=== PATIENT | female | born 1955 | race Caucasian/White ===

== ENCOUNTER 2023-10-13 02:57 | Inpatient (IN) ==
--- NOTE | 2023-10-13 03:19 | Emergency Department Note ---
Impression & Plan Febrile illness, Acute alteration in mental status ED Provider Note CHIEF COMPLAINT: Altered mental status HISTORY OF PRESENTING ILLNESS: This 68 year old female presents to the ER via ambulance for evaluation of altered mental status. All history was obtained from EMS and her sisters since the patient is unable to give an adequate history. Per EMS the patient was normal at noon. The patient's sister called and spoke with her in the evening and noticed that she had some slight confusion. She then called her later in the evening and noticed that she was completely confused. The patient had a fever of 103 F at home. She was 102 F for EMS. The patient was tachycardic in the 130s per EMS. Her systolic blood pressures were in the 200s for EMS. Her pulse ox was in the 80s and EMS placed her on 4 L of nasal cannula. She does not wear O2 at home. The patient has had a rash for the past month and is currently taking prednisone for the rash. Additional history obtained from the patient's sisters revealed that she had a rash all over her body that resolved after the first course of steroids, but then returned. She was given a second course of steroids with resolution of the rash again. Her sisters think that she is almost done with the steroids. The patient was recently started on hydrochlorothiazide about 1 week ago as well. The patient was bit by a tick about 3 weeks ago behind her knee. The patient removed to the tick on her own. The patient sisters state that she [place] this morning and had no symptoms and no abnormalities. In the afternoon when she got home she talked to her sister and said that she started feeling cold and shaking and felt like she had a fever. When she talked her again in the evening is when she had the higher fever and was more altered. REVIEW OF SYSTEMS: See HPI for pertinent positives and pertinent negatives. ALLERGIES: NKDA MEDICATIONS: Hydrochlorothiazide 12.5 mg once a day, simvastatin 40 mg once a day. Currently on prednisone 20 mg taper with 2 tablets left in the bottle. She also has a prescription for hydroxyzine 25 mg to take as needed for the itching. PAST MEDICAL HISTORY: Hypertension, high cholesterol PHYSICAL EXAM: Vital Signs: Vitals are noted on the nurse's note and reviewed by myself. GENERAL: The patient is ill-appearing, febrile, tachycardic, tachypneic, and altered. She is somewhat diaphoretic. SKIN: No obvious rashes or abnormal skin lesions noted on exam. Possible faint erythema to the left popliteal fossa from her previous tick bite. No obvious evidence for bull's-eye rash. Capillary reflex less than 2 seconds. HEAD: Normocephalic, atraumatic. EARS: Bilateral external auditory canals clear without tragus tenderness. Bilateral tympanic membranes pearly barbour without erythema or effusion. No mastoid tenderness bilaterally. EYES: Pupils equal round and reactive to light and accommodation. Conjunctivae without injection, sclerae without icterus. Extraocular movements intact. NOSE: Patent, turbinates inflamed with no discharge. No sinus tenderness. MOUTH: Mucous membranes moist. Airway patent, uvula midline. Pharynx is not erythematous and not edematous without exudate. Pharynx without postnasal drip. No evidence for peritonsillar abscess. NECK: Supple without nuchal rigidity. No obvious lymphadenopathy. HEART: Regular rate and rhythm without murmurs gallops or rubs. LUNGS: Clear to auscultation bilaterally without obvious wheezes, rales or rhonchi, but exam was somewhat difficult due to her status. The patient was hypoxic and placed on 3 L of oxygen by nasal cannula. ABDOMEN: Positive bowel sounds x 4. Normal tympanic percussion. Soft, nontender, without masses or organomegaly. NEURO: Patient was alert and oriented only to her name and birthday. She answered most questions with yes or no, but the yes and no did not seem to be appropriate. She was unable to answer more extensive questions. DIFFERENTIAL DIAGNOSIS: Differential diagnosis includes Influenza, RSV, COVID, viral syndrome, otitis media, otitis externa, pharyngitis, strep throat, pneumonia, meningitis, urinary tract infection, cellulitis, abscess, sepsis, bacteremia, Lyme disease, babesiosis, anaplasmosis, other tickborne illness, as well as other pathologies. ED COURSE AND MEDICAL DECISION MAKING: HISTORY FROM INDEPENDENT HISTORIAN: All history obtained from EMS and the patient's sisters due to her altered mental status. MONITOR: Continuous personnel monitor: Order was placed for continuous personnel monitor. Patient was placed on the personnel monitor and continuous pulse ox. Patient was noted to be in sinus tachycardia at an initial rate of 130 bpm per my interpretation. EKG: EKG was interpreted by myself as sinus tachycardia at 138 bpm with premature supraventricular complexes and nonspecific T wave abnormality. MEDICATIONS GIVEN: A total of 2 L normal saline solution bolus. Tylenol 1000 mg IV. Cefepime 2 g IV. INTERPRETATION OF LABS: I interpreted the labs with full lab results as below in the lab section of this note. White blood cell count normal 8.67. Hemoglobin normal at 15.4. Platelet count normal at 198. Coags normal. BUN elevated at 24 and glucose 172, but CMP otherwise normal. Lactate normal, but procalcitonin elevated at 0.72. TSH normal. High-sensitivity troponin elevated at 16.3 with repeat elevated at 24.3. Cath urine sample without evidence for UTI. Urine drug screen negative. Respiratory bio fire negative. Lyme disease screen negative. Anaplasmosis and Babesia smear negative, but DNA PCR still pending. Other tickborne testing still pending as well. Blood cultures pending. INTERPRETATION OF IMAGING: Chest x-ray was interpreted by myself and Dr. Ivan and was difficult to interpret due to positioning and showed elevation of the hemidiaphragm and cardiomegaly, but no obvious pneumonia. Radiology report is still pending. CT scan of the head without contrast was reviewed by myself and read by radiology as below and was negative for acute intracranial etiology. CONSULTATIONS: On-call hospitalist MDM SUMMARY: I examined the patient. The patient presents to the emergency department via EMS for altered mental status and fever. The patient was febrile, tachycardic, tachypneic, and hypoxic on initial exam. Hypoxia resolved after O2 by nasal cannula. The patient's sister states that she was in a normal state of health this morning. However, this afternoon the patient's sister spoke with her on the phone and she started having symptoms like she was developing a fever. This evening the patient's sister talked to her and she had an altered mental status and a fever of 103 F. That is when the sister called 911. The patient has been dealing with a rash as an outpatient that resolved after 2 courses of oral steroids. She still has 2 pills of prednisone remaining. The patient was also bit by a tick about 3 weeks ago behind the left knee. The patient was not having any URI symptoms, chest pain, shortness of breath, abdominal pain, nausea, vomiting, urinary symptoms, or other symptoms of possible infection. The patient was alert, but only oriented to her name and date of on my initial exam. However, the patient's mental status improved as her fever resolved and vital signs improved. An IV lock was placed and sepsis workup initiated. The patient was given a total of 2 L normal saline solution bolus based on her ideal body weight. Blood cultures were obtained and she was given cefepime 2 g IV. The patient was given IV Tylenol with eventual improvement of her fever. CT scan of the head was negative for acute intracranial etiology. Chest x-ray negative for obvious pneumonia per my interpretation with radiology report still pending. EKG without evidence for STEMI, but high-sensitivity troponin x 2 were mildly elevated which may be secondary to demand ischemia. White blood cell count was normal. Hemoglobin and platelet count were normal. BUN and glucose were elevated, but CMP otherwise normal. Lactate normal, but procalcitonin elevated at 0.72. Cath urine sample was negative for UTI. Urine drug screen negative. Respiratory bio fire negative. Lyme disease screen negative. Anaplasmosis and Babesia smears were negative, but DNA PCR still pending. Other tickborne testing still pending as well. Blood cultures are pending. While there is no obvious source of the patient's fever and symptoms at this time, there is concern for possible tickborne etiology. Will await results of the pending tests. The patient was independently evaluated by Dr. Ivan, who agrees with my assessment and treatment plan. The patient will require admission for further evaluation and treatment of her symptoms. I spoke with the on-call hospitalist who agreed to admit the patient for further management. Please refer to their dictation for further details. The patient's care was transferred in stable condition. After the patient was admitted, the radiologist read the chest x-ray. Radiologist reading showed a bandlike right infrahilar opacity which favors atelectasis. However, less likely pneumonia could appear similar. This could be assessed with a nonemergent chest CT to exclude a central obstructing lesion. Moderate elevation of the right hemidiaphragm. Cardiomegaly without evidence for pulmonary edema. I sent the radiologist report to the admitting hospitalist via [place] text. DIAGNOSIS: Febrile illness Altered mental status Past Med/Surg History Medical History (Updated 10/13/23 @ 08:53 by Maria E Cameron PA-C) Hypertension Asthma cold induced--inhaler prn Hyperlipidemia Surgical History History of colonoscopy History of tooth extraction full upper denture Family History Other No family history of adverse response to anesthesia Social History Smoking Status: Never smoker Second Hand Exposure: No; Do You Dip or Chew Tobacco: No; Tobacco Cessation Education Requested by Patient: No Hx Alcohol Use: No Hx Substance Use: No Preferred Language: Martiniquais Communication Ability: Effective Systems Mgr Required: No Beliefs That Will Affect Care: None Current Living Situation: Family Current Living Situation Comment: "live with someone" Other Information That Helps Us Care for You: No Feels Safe at Home: Yes Safety Concerns: Feels Safe At This Time Assistive Devices: None Allergies Allergies Allergy/AdvReac Type Severity Reaction Status Date / Time No Known Allergies Allergy Verified 03/10/21 12:14 Home Meds Home Medications Medication Instructions Recorded Confirmed albuterol sulfate 90 mcg/actuation 2 puff inhalation Q6H PRN 03/04/21 03/10/21 aerosol inhaler Shortness Of Breath atorvastatin 40 mg tablet 40 mg PO HS 03/04/21 03/10/21 hydrochlorothiazide 12.5 mg tablet 12.5 mg PO DAILY 10/13/23 10/13/23 hydroxyzine HCl 25 mg tablet mg 10/13/23 prednisone 20 mg tablet 20 mg PO DAILY 10/13/23 10/13/23 Results & Data (ED) Vital Signs Vital Signs - 24 hr 10/13/23 03:11 10/13/23 03:16 10/13/23 03:24 Temperature 39.6 C H Temperature Source Oral Pulse Rate 135 H 135 H Pulse Rate [Apical] Pulse Rhythm [Apical] Respiratory Rate 41 H Respiratory Effort / Characteristics Respiratory Depth Respiratory Pattern Blood Pressure 161/98 H Blood Pressure [Left Arm] Blood Pressure Mean 119 Blood Pressure Mean [Left Arm] Blood Pressure Position [Left Arm] Pulse Oximetry 87 L 97 Oxygen Delivery Method Room Air Nasal Cannula Oxygen Flow Rate 3 Sepsis Recent Fever Within 48 Hours Yes Sepsis New/Unexplained Change in Mental Status Yes Sepsis Action Taken by Nursing Adv Provider Notified 10/13/23 04:10 10/13/23 04:33 10/13/23 05:00 Temperature 39.0 C H 39.3 C H Temperature Source Oral Oral Pulse Rate Pulse Rate [Apical] 118 H 116 H Pulse Rhythm [Apical] Regular Respiratory Rate 30 H 21 Respiratory Effort / Characteristics Non-Labored Spontaneous Respiratory Depth Normal Respiratory Pattern Regular Blood Pressure Blood Pressure [Left Arm] 141/66 H 113/58 L Blood Pressure Mean Blood Pressure Mean [Left Arm] 91 76 Blood Pressure Position [Left Arm] Semi-fowlers Pulse Oximetry 97 96 Oxygen Delivery Method Nasal Cannula Nasal Cannula Oxygen Flow Rate 3 4 Sepsis Recent Fever Within 48 Hours Sepsis New/Unexplained Change in Mental Status Sepsis Action Taken by Nursing Laboratory Data 10/13/23 03:15 10/13/23 03:15 Lab Results 10/13/23 10/13/23 10/13/23 Range/Units 03:15 03:15 03:34 WBC 8.67 (4.8-10.8) K/ul RBC 5.19 (4.20-5.40) M/uL Hgb 15.4 (12.0-16.0) g/dl Hct 45.2 (37.0-47.0) % MCV 87.1 (80.0-100.0) fL MCH 29.7 (25.0-34.0) pg MCHC 34.1 (32.0-36.0) g/dL RDW Std Deviation 39.8 (36.4-46.3) fL RDW Coeff of Zonia 12.5 (11.5-14.5) % Plt Count 198 (130-400) K/uL MPV 9.2 L (9.4-12.4) fL Immature Gran % (Auto) 0.6 % Neut % (Auto) 83.8 % Lymph % (Auto) 7.5 % [place] % (Auto) 7.4 % Eos % (Auto) 0.5 % Baso % (Auto) 0.2 % Neut # (Auto) 7.27 H (1.40-6.50) K/uL Lymph # (Auto) 0.65 L (1.20-3.40) K/uL [place] # (Auto) 0.64 H (0.11-0.59) K/uL Eos # (Auto) 0.04 (0.00-0.50) K/uL Baso # (Auto) 0.02 (0.00-0.20) K/uL Immature Gran # (Auto) 0.05 (0.01-0.20) K/uL PT 11.3 (9.0-12.0) Seconds INR 1.0 (0.9-1.1) APTT 21 (21-31) Seconds PTT Ratio 0.7 Sodium 136 (136-145) mmol/L Potassium 4.2 (3.5-5.1) mmol/L Chloride 100 (98-107) mmol/L Carbon Dioxide 28 (21-32) mmol/L Anion Gap 8 (3-11) BUN 24 H (6-23) mg/dl Creatinine 1.02 (0.6-1.2) mg/dl Est Cr Clr Drug Dosing 56.2 ml/min Est GFR ( Amer) 66.4 ml/min Est GFR (Non-Af Amer) 57.3 ml/min BUN/Creatinine Ratio 23.5 H (10-20) Glucose 172 H (70-99(Fasting)) mg/dl Lactate 1.6 (0.4-2.0) mmol/L Calcium 8.9 (8.6-10.3) mg/dl Magnesium 1.7 (1.7-2.4) mg/dl Total Bilirubin 0.8 (0.2-1.0) mg/dl AST 13 (13-39) U/L ALT 15 (7-52) U/L Alkaline Phosphatase 55 (34-104) U/L Troponin I High Sens 16.3 H Cancelled (0-14) pg/ml Total Protein 6.6 (6.0-8.3) gm/dl Albumin 4.0 (3.4-5.0) gm/dl Globulin 2.6 (2.5-4.0) gm/dl Albumin/Globulin Ratio 1.5 (0.9-2) Lipase 53 (11-82) U/L Procalcitonin 0.72 H (0-0.5) ng/ml TSH 0.601 (0.300-4.500) uIu/ml Urine Color Yellow Urine Appearance Clear (Clear) Urine pH 5.5 (4.5-7.5) Ur Specific [place] 1.023 (1.000-1.030) Urine Protein 1+ H (Negative) Urine Glucose (UA) Negative (Negative) Urine Ketones Negative (Negative) Urine Blood Negative (Negative) Urine Nitrite Negative (Negative) Urine Bilirubin Negative (Negative) Urine Urobilinogen Negative (Negative) Ur Leukocyte Esterase Negative (Negative) Urine WBC (Auto) 0-5 (0-5) /hpf Urine RBC (Auto) 0-2 (0-2) /hpf U Hyaline Cast (Auto) 0-2 (0-2) /lpf U Epithel Cells (Auto) 11-20 H (0-2) /hpf Urine Bacteria (Auto) None Seen (None Seen) Urine Mucus Present A (None Prsent) Urine Opiates Screen Neg (Neg) Ur Methadone, Qual Neg (Neg) Urine Barbiturates Neg (Neg) Ur Phencyclidine (PCP) Neg (Neg) U Amphetamin/Meth Scrn Neg (Neg) MDMA (Ecstasy) Screen Neg (Neg) U Benzodiazepines Scrn Neg (Neg) Ur Cocaine Metabolite Neg (Neg) U Marijuana (THC) Screen Neg (Neg) Adenovirus (PCR) Not Detected (NotDetected) Anaplasma Smear See Comment Babesia Smear See Comment B. pertussis DNA (PCR) Not Detected (NotDetected) B.parapertussis DNA PCR Not Detected (NotDetected) Lyme Disease Screen (Negative) C. pneumoniae DNA (PCR) Not Detected (NotDetected) Coronavirus OC43 (PCR) Not Detected (NotDetected) Coronavirus HKU1 (PCR) Not Detected (NotDetected) Coronavirus 229E (PCR) Not Detected (NotDetected) SARS-CoV-2 (PCR) Not Detected (NotDetected) Coronavirus NL63 (PCR) Not Detected (NotDetected) Human Metapneumovir PCR Not Detected (NotDetected) Influenza Type A (PCR) Not Detected (NotDetected) Influenza Type B (PCR) Not Detected (NotDetected) M. pneumoniae (PCR) Not Detected (NotDetected) Parainfluenza 1 (PCR) Not Detected (NotDetected) Parainfluenza 2 (PCR) Not Detected (NotDetected) Parainfluenza 3 (PCR) Not Detected (NotDetected) Parainfluenza 4 (PCR) Not Detected (NotDetected) RSV (PCR) Not Detected (NotDetected) Entero/Rhino (PCR) Not Detected (NotDetected) 10/13/23 Range/Units 04:59 WBC (4.8-10.8) K/ul RBC (4.20-5.40) M/uL Hgb (12.0-16.0) g/dl Hct (37.0-47.0) % MCV (80.0-100.0) fL MCH (25.0-34.0) pg MCHC (32.0-36.0) g/dL RDW Std Deviation (36.4-46.3) fL RDW Coeff of Zonia (11.5-14.5) % Plt Count (130-400) K/uL MPV (9.4-12.4) fL Immature Gran % (Auto) % Neut % (Auto) % Lymph % (Auto) % [place] % (Auto) % Eos % (Auto) % Baso % (Auto) % Neut # (Auto) (1.40-6.50) K/uL Lymph # (Auto) (1.20-3.40) K/uL [place] # (Auto) (0.11-0.59) K/uL Eos # (Auto) (0.00-0.50) K/uL Baso # (Auto) (0.00-0.20) K/uL Immature Gran # (Auto) (0.01-0.20) K/uL PT (9.0-12.0) Seconds INR (0.9-1.1) APTT (21-31) Seconds PTT Ratio Sodium (136-145) mmol/L Potassium (3.5-5.1) mmol/L Chloride (98-107) mmol/L Carbon Dioxide (21-32) mmol/L Anion Gap (3-11) BUN (6-23) mg/dl Creatinine (0.6-1.2) mg/dl Est Cr Clr Drug Dosing ml/min Est GFR ( Amer) ml/min Est GFR (Non-Af Amer) ml/min BUN/Creatinine Ratio (10-20) Glucose (70-99(Fasting)) mg/dl Lactate (0.4-2.0) mmol/L Calcium (8.6-10.3) mg/dl Magnesium (1.7-2.4) mg/dl Total Bilirubin (0.2-1.0) mg/dl AST (13-39) U/L ALT (7-52) U/L Alkaline Phosphatase (34-104) U/L Troponin I High Sens 24.3 H (0-14) pg/ml Total Protein (6.0-8.3) gm/dl Albumin (3.4-5.0) gm/dl Globulin (2.5-4.0) gm/dl Albumin/Globulin Ratio (0.9-2) Lipase (11-82) U/L Procalcitonin (0-0.5) ng/ml TSH (0.300-4.500) uIu/ml Urine Color Urine Appearance (Clear) Urine pH (4.5-7.5) Ur Specific [place] (1.000-1.030) Urine Protein (Negative) Urine Glucose (UA) (Negative) Urine Ketones (Negative) Urine Blood (Negative) Urine Nitrite (Negative) Urine Bilirubin (Negative) Urine Urobilinogen (Negative) Ur Leukocyte Esterase (Negative) Urine WBC (Auto) (0-5) /hpf Urine RBC (Auto) (0-2) /hpf U Hyaline Cast (Auto) (0-2) /lpf U Epithel Cells (Auto) (0-2) /hpf Urine Bacteria (Auto) (None Seen) Urine Mucus (None Prsent) Urine Opiates Screen (Neg) Ur Methadone, Qual (Neg) Urine Barbiturates (Neg) Ur Phencyclidine (PCP) (Neg) U Amphetamin/Meth Scrn (Neg) MDMA (Ecstasy) Screen (Neg) U Benzodiazepines Scrn (Neg) Ur Cocaine Metabolite (Neg) U Marijuana (THC) Screen (Neg) Adenovirus (PCR) (NotDetected) Anaplasma Smear Babesia Smear B. pertussis DNA (PCR) (NotDetected) B.parapertussis DNA PCR (NotDetected) Lyme Disease Screen Negative (Negative) C. pneumoniae DNA (PCR) (NotDetected) Coronavirus OC43 (PCR) (NotDetected) Coronavirus HKU1 (PCR) (NotDetected) Coronavirus 229E (PCR) (NotDetected) SARS-CoV-2 (PCR) (NotDetected) Coronavirus NL63 (PCR) (NotDetected) Human Metapneumovir PCR (NotDetected) Influenza Type A (PCR) (NotDetected) Influenza Type B (PCR) (NotDetected) M. pneumoniae (PCR) (NotDetected) Parainfluenza 1 (PCR) (NotDetected) Parainfluenza 2 (PCR) (NotDetected) Parainfluenza 3 (PCR) (NotDetected) Parainfluenza 4 (PCR) (NotDetected) RSV (PCR) (NotDetected) Entero/Rhino (PCR) (NotDetected) Administered Medications Discontinued Medications Sodium Chloride (Nss) 1,000 mls @ 999 mls/hr IV .Q1H1M STA Stop: 10/13/23 04:23 Last Infusion: 10/13/23 05:01 Dose: Infused Documented By: Admin: 10/13/23 03:40 Dose: 999 mls/hr Documented By: RICKY Sodium Chloride (Nss) 1,000 mls @ 999 mls/hr IV .Q1H1M ONE Stop: 10/13/23 04:23 Last Infusion: 10/13/23 05:01 Dose: Infused Documented By: Admin: 10/13/23 03:40 Dose: 999 mls/hr Documented By: RICKY Cefepime HCl (Maxipime) 2,000 mg in 20 mls @ 5 mls/min IV NOW STA; Protocol Stop: 10/13/23 03:26 Last Admin: 10/13/23 03:39 Dose: 5 mls/min Documented By: RICKY Acetaminophen (Ofirmev) 1,000 mg in 100 mls @ 400 mls/hr IV NOW STA Stop: 10/13/23 03:41 Last Infusion: 10/13/23 03:54 Dose: Infused Documented By: Admin: 10/13/23 03:39 Dose: 400 mls/hr Documented By: RICKY Ondansetron HCl (Ondansetron Inj 2 Mg/Ml 2 Ml Vial) Confirm Administered Dose 4 mg .ROUTE .STK-MED ONE Stop: 10/13/23 03:07 Last Admin: 10/13/23 06:01 Dose: Not Given Documented By: RICKY Imaging Data Radiologist's Impression: Chest X-Ray 10/13/23 03:24 XR chest 1V portable CLINICAL HISTORY: Fever. COMPARISON STUDY: No previous studies for comparison. FINDINGS: There is moderate elevation of the right hemidiaphragm. Linear right basilar opacity favors atelectasis. Right infrahilar band-like density is present. There is mild cardiomegaly without evidence for pulmonary edema. There is no pneumothorax or pleural effusion. IMPRESSION: 1. Band-like right infrahilar opacity. This favors atelectasis. Although less likely, pneumonia could appear similar. This could be assessed with a nonemergent chest CT to exclude a central obstructing lesion. This finding will be called/faxed to ordering provider at time of dictation. 2. Moderate elevation of the right hemidiaphragm. 3. Cardiomegaly without evidence for pulmonary edema. ACT 112: Negative or not required by law. Electronically signed by: Armando Bagley M.D. 10/13/2023 6:[address] 10/13/23 03:26 Exam(s): CT HEAD Without Contrast EXAM: CT Head Without Intravenous Contrast CLINICAL HISTORY: Reason for exam: AMS. TECHNIQUE: Axial computed tomography images of the head/brain without intravenous contrast. Automated exposure control was utilized for the study. A dose lowering technique was utilized adhering to the principles of ALARA. COMPARISON: No relevant prior studies available. FINDINGS: Brain: Unremarkable. No hemorrhage. No significant white matter disease. No edema. Ventricles: Unremarkable. No ventriculomegaly. Bones/joints: Incomplete fusion posterior ring of C1. Hyperostosis frontalis interna. Small benign bony exostosis over the left frontal bone. No acute fracture. Soft tissues: Unremarkable. Sinuses: Unremarkable as visualized. No acute sinusitis. Mastoid air cells: Unremarkable as visualized. No mastoid effusion. IMPRESSION: No evidence of acute intracranial pathology. Electronically signed by: Evon Sanchez MD 10/13/23 04:51 AM Discharge Plan Visit Data Chief Complaint: Altered Mental Status Stated Complaint: ALTERED MENTAL STATUS, FEVER ED Provider: Olimpia Ivan ED Midlevel Provider: Maria E Cameron Discharge Problem: Febrile illness, Acute alteration in mental status Patient Disposition: Admitted As Inpatient Condition: Good Discharge Instructions Interventions: ED Discharge Assessment Last Done: 10/13/23 07:40
[2023-10-13] MEDS: ACETAMINOPHEN 1,000 MG/100 ML VIAL IV STA (03:39)
[2023-10-13] MEDS: CEFEPIME 2,000 MG/20 ML VIAL IV STA (03:39)
[2023-10-13] MEDS: SODIUM CHLORIDE 0.9% 1,000 ML IV STA (03:40)
[2023-10-13] MEDS: SODIUM CHLORIDE 0.9% 1,000 ML IV ONE (03:40)
[2023-10-13 03:46] LABS: Basophils # (auto) 0.02 K/uL (0.00-0.20); Basophils % (auto) 0.2 %; Eosinophils # (auto) 0.04 K/uL (0.00-0.50); Eosinophils % (auto) 0.5 %; Hematocrit (blood only) 45.2 % (37.0-47.0); Hemoglobin 15.4 g/dl (12.0-16.0); Immature Granulocytes # (auto) 0.05 K/uL (0.01-0.20); Immature Granulocytes % (auto) 0.6 %; Lymphocytes # (auto) 0.65 K/uL (1.20-3.40); Lymphocytes % (auto) 7.5 %; Mean Corpuscular Hemoglobin 29.7 pg (25.0-34.0); Mean Corpuscular Hgb Conc 34.1 g/dL (32.0-36.0); Mean Corpuscular Volume 87.1 fL (80.0-100.0); Mean Platelet Volume 9.2 fL (9.4-12.4); Monocytes # (auto) 0.64 K/uL (0.11-0.59); Monocytes % (auto) 7.4 %; Neutrophils # (auto) 7.27 K/uL (1.40-6.50); Neutrophils % (auto) 83.8 %; Platelet Count 198 K/uL (130-400); RDW Coefficient of Variation 12.5 % (11.5-14.5); RDW Standard Deviation 39.8 fL (36.4-46.3); Red Blood Count 5.19 M/uL (4.20-5.40); White Blood Count 8.67 K/ul (4.8-10.8)
[2023-10-13 04:02] LABS: Albumin Globulin Ratio 1.5 (0.9-2); BUN Creatinine Ratio 23.5 (10-20); Bilirubin,Total 0.8 mg/dl (0.2-1.0); Calcium 8.9 mg/dl (8.6-10.3); Creatinine Clr Calc Pharmacy 56.2 ml/min; Est GFR (African American) 66.4 ml/min; Est GFR (Non-African American) 57.3 ml/min; Globulin 2.6 gm/dl (2.5-4.0); Magnesium 1.7 mg/dl (1.7-2.4); Potassium 4.2 mmol/L (3.5-5.1); Total Protein 6.6 gm/dl (6.0-8.3)
[2023-10-13 04:07] LABS: Troponin I High Sensitivity 16.3 pg/ml (0-14)
[2023-10-13 04:12] LABS: Appearance Urine Clear (Clear); Bacteria Urine Automated None Seen (None Seen); Bilirubin Urine Negative (Negative); Blood Urine Negative (Negative); Color Urine Yellow; Glucose Urine UA Negative (Negative); Ketones Urine Negative (Negative); Leukocyte Esterase Urine Negative (Negative); Nitrite Urine Negative (Negative); Protein Urine 1+ (Negative); RBC Urine Automated 0-2 /hpf (0-2); Specific Gravity Urine 1.023 (1.000-1.030); Urobilinogen Urine Negative (Negative); WBC Urine Automated 0-5 /hpf (0-5); pH Urine 5.5 (4.5-7.5)
[2023-10-13 04:17] LABS: Thyroid Stimulating Hormone 0.601 uIu/ml (0.300-4.500)
[2023-10-13 04:23] LABS: Cast Urine Automated 0-2 /lpf (0-2); Mucus Urine Present (None Prsent)
[2023-10-13 04:34] LABS: Partial Thromboplastin Ratio 0.7; Partial Thromboplastin Time 21 Seconds (21-31); Prothrombin Time 11.3 Seconds (9.0-12.0)
[2023-10-13 04:37] LABS: Adenovirus PCR Not Detected (NotDetected); Bordetella parapertussis PCR Not Detected (NotDetected); Bordetella pertussis PCR Not Detected (NotDetected); Chlamydia pneumoniae PCR Not Detected (NotDetected); Coronavirus 229E PCR Not Detected (NotDetected); Coronavirus CoV-2 (COVID19)PCR Not Detected (NotDetected); Coronavirus HKU1 PCR Not Detected (NotDetected); Coronavirus NL63 PCR Not Detected (NotDetected); Coronavirus OC43PCR Not Detected (NotDetected); Human Metapneumovirus PCR Not Detected (NotDetected); Influenza A PCR Not Detected (NotDetected); Influenza B PCR Not Detected (NotDetected); Mycoplasma pneumoniae PCR Not Detected (NotDetected); Parainfluenza Virus 1 PCR Not Detected (NotDetected); Parainfluenza Virus 2 PCR Not Detected (NotDetected); Parainfluenza Virus 3 PCR Not Detected (NotDetected); Parainfluenza Virus 4 PCR Not Detected (NotDetected); Respiratory Syncytial VirusPCR Not Detected (NotDetected); Rhinovirus/Enterovirus PCR Not Detected (NotDetected)
--- NOTE | 2023-10-13 04:52 | CT Scan Report ---
Exam(s): CT HEAD Without Contrast EXAM: CT Head Without Intravenous Contrast CLINICAL HISTORY: Reason for exam: AMS. TECHNIQUE: Axial computed tomography images of the head/brain without intravenous contrast. Automated exposure control was utilized for the study. A dose lowering technique was utilized adhering to the principles of ALARA. COMPARISON: No relevant prior studies available. FINDINGS: Brain: Unremarkable. No hemorrhage. No significant white matter disease. No edema. Ventricles: Unremarkable. No ventriculomegaly. Bones/joints: Incomplete fusion posterior ring of C1. Hyperostosis frontalis interna. Small benign bony exostosis over the left frontal bone. No acute fracture. Soft tissues: Unremarkable. Sinuses: Unremarkable as visualized. No acute sinusitis. Mastoid air cells: Unremarkable as visualized. No mastoid effusion. IMPRESSION: No evidence of acute intracranial pathology. Electronically signed by: Evon Sanchez MD 10/13/23 04:51 AM
--- NOTE | 2023-10-13 05:13 | History & Physical Report ---
Date of Service October 13, 2023 Assessment & Plan (1) Febrile illness: Plan: Patient febrile 39.3, tachycardic at 116 bpm. She has normal white blood cell count but elevated neutrophils and decreased lymphocytes indicative of systemic stress. Mild elevation of procalcitonin = 0.72. Etiology unclear. Suspect tickborne illness. Patient reports a tick bite approximately 3 weeks ago. UA does not suggest infection, chest x-ray with no obvious pneumonia, respiratory bio fire panel is negative. Typhus, Rickettsia, Q fever and tickborne panel sent from the ER and is pending Admit to medical telemetry Follow cultures Empiric doxycycline 100 mg IV twice daily Continue IV hydration with LR at 125 mL/h x 2 L Tylenol as needed for pain or fever Ibuprofen as needed for pain or fever Zofran as needed for nausea (2) Encephalopathy acute: Plan: Patient with acute encephalopathy likely secondary to infectious process Workup as above Frequent orientation (3) Hypertension: Plan: Patient was recently started on hydrochlorothiazide. Her rash was present before this medication started Will hold for now Continue to monitor blood pressure (4) Hyperlipidemia: Plan: Chronic. Stable. Continue atorvastatin History of Present Illness Chief Complaint: fever, confusion Primary Care Provider: Jose Sánchez Gracie Salazar is a 68yo female with history of HTN, HLP and asthma presenting from home with acute febrile illness. Patient has been in her usual state of health with exception of a diffuse pruritic rash that occurred several weeks ago. She completed a course of steroids with improvement and is currently on her second course of steroids. This morning she went to get her hair done. She developed some chills and fatigue. She then returned home and called her sister. Her sister reports that she sounded tired and a little bit off, some difficulty with speaking. Her confusion progressed throughout the day. Patient was not answering questions this evening which prompted family to call EMS. Per report, patient febrile, tachycardic, tachypneic. Decreased saturations. Patient presently offers no complaints. She has had an intermittent headache and chills. Denies neck pain or stiffness, chest pain, cough, shortness of breath, abdominal pain, nausea, vomiting, diarrhea, constipation, urinary complaints. She was bitten by a tick 3 weeks ago in the back of her knee. She reports that the area became very red afterwards but does not describe a true bull's-eye peri h. ER course: Tylenol, cefepime, normal saline x 2 L Allergies Allergy/AdvReac Type Severity Reaction Status Date / Time No Known Allergies Allergy Verified 03/10/21 12:14 Home Medications Medication Instructions Recorded Confirmed Type albuterol sulfate 90 mcg/actuation 2 puff inhalation Q6H PRN 03/04/21 03/10/21 History aerosol inhaler Shortness Of Breath atorvastatin 40 mg tablet 40 mg PO HS 03/04/21 03/10/21 History hydrochlorothiazide 12.5 mg tablet 12.5 mg PO DAILY 10/13/23 10/13/23 History hydroxyzine HCl 25 mg tablet mg 10/13/23 History prednisone 20 mg tablet 20 mg PO DAILY 10/13/23 10/13/23 History Past Med/Surg History Medical History (Updated 10/13/23 @ 05:36 by Manasa Urena DO) Hypertension Asthma cold induced--inhaler prn Hyperlipidemia Surgical History History of colonoscopy History of tooth extraction full upper denture Family History Other No family history of adverse response to anesthesia Social History Smoking Status: Never smoker Second Hand Exposure: No; Do You Dip or Chew Tobacco: No; Hx Alcohol Use: No Hx Substance Use: No Preferred Language: Macedonian Communication Ability: Effective 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 Beliefs That Will Affect Care: None Current Living Situation: Other Current Living Situation Comment: "live with someone" Feels Safe at Home: Yes Assistive Devices: Denture - Upper and Glasses Review of Systems Review of Systems: All systems reviewed & are unremarkable except as noted in HPI & below Physical Exam Physical Exam: General: patient resting comfortably, NAD, non-toxic in appearance, AA&O x 4 Skin: warm, dry, intact, no rashes or lesions HEENT: NC/AT, PERRL, EOMI, anicteric sclera, conjunctiva without injection, external ear normal to inspection and nontender, nares patent, dry mucus membranes, dentition intact, no oropharyngeal lesions, neck supple, trachea midline, no LAD, no thyromegaly, no JVD Heart: +S1/S2, regular, no m/r/g Lungs: equal air entry bilaterally, no rales/rhonchi/wheezes Abd: +BS, soft, NT/ND, no masses/organomegaly/ascites Ext: warm, 2+ pulses in UE/LE bilaterally, no clubbing/cyanosis or edema Neuro: nonfocal, patient AA&O x 4, speech intact, no facial droop, moving all extremities on command with equal strength 5/5 Results & Data Results & Data Vital Signs (Past 12 Hours) Vital Signs Temp Pulse Pulse Resp BP BP Pulse Ox 10/13/23 04:33 39.3 C H 10/13/23 04:10 39.0 C H 118 H 30 H 141/66 H 97 10/13/23 03:24 97 10/13/23 03:16 39.6 C H 135 H 41 H 161/98 H 87 L 10/13/23 03:11 135 H O2 Del Method O2 Flow Rate 10/13/23 04:33 10/13/23 04:10 Nasal Cannula 3 10/13/23 03:24 Nasal Cannula 3 10/13/23 03:16 Room Air 10/13/23 03:11 Laboratory Results Laboratory Results WBC 8.67 K/ul (4.8-10.8) 10/13/23 03:15 RBC 5.19 M/uL (4.20-5.40) 10/13/23 03:15 Hgb 15.4 g/dl (12.0-16.0) 10/13/23 03:15 Hct 45.2 % (37.0-47.0) 10/13/23 03:15 MCV 87.1 fL (80.0-100.0) 10/13/23 03:15 MCH 29.7 pg (25.0-34.0) 10/13/23 03:15 MCHC 34.1 g/dL (32.0-36.0) 10/13/23 03:15 RDW Std Deviation 39.8 fL (36.4-46.3) 10/13/23 03:15 RDW Coeff of Zonia 12.5 % (11.5-14.5) 10/13/23 03:15 Plt Count 198 K/uL (130-400) 10/13/23 03:15 MPV 9.2 fL (9.4-12.4) L 10/13/23 03:15 Immature Gran % (Auto) 0.6 % 10/13/23 03:15 Neut % (Auto) 83.8 % 10/13/23 03:15 Lymph % (Auto) 7.5 % 10/13/23 03:15 [place] % (Auto) 7.4 % 10/13/23 03:15 Eos % (Auto) 0.5 % 10/13/23 03:15 Baso % (Auto) 0.2 % 10/13/23 03:15 Neut # (Auto) 7.27 K/uL (1.40-6.50) H 10/13/23 03:15 Lymph # (Auto) 0.65 K/uL (1.20-3.40) L 10/13/23 03:15 [place] # (Auto) 0.64 K/uL (0.11-0.59) H 10/13/23 03:15 Eos # (Auto) 0.04 K/uL (0.00-0.50) 10/13/23 03:15 Baso # (Auto) 0.02 K/uL (0.00-0.20) 10/13/23 03:15 Immature Gran # (Auto) 0.05 K/uL (0.01-0.20) 10/13/23 03:15 PT 11.3 Seconds (9.0-12.0) 10/13/23 03:15 INR 1.0 (0.9-1.1) 10/13/23 03:15 APTT 21 Seconds (21-31) 10/13/23 03:15 PTT Ratio 0.7 10/13/23 03:15 Sodium 136 mmol/L (136-145) 10/13/23 03:15 Potassium 4.2 mmol/L (3.5-5.1) 10/13/23 03:15 Chloride 100 mmol/L (98-107) 10/13/23 03:15 Carbon Dioxide 28 mmol/L (21-32) 10/13/23 03:15 Anion Gap 8 (3-11) 10/13/23 03:15 BUN 24 mg/dl (6-23) H 10/13/23 03:15 Creatinine 1.02 mg/dl (0.6-1.2) 10/13/23 03:15 Est Cr Clr Drug Dosing 56.2 ml/min 10/13/23 03:15 Est GFR ( Amer) 66.4 ml/min 10/13/23 03:15 Est GFR (Non-Af Amer) 57.3 ml/min 10/13/23 03:15 BUN/Creatinine Ratio 23.5 (10-20) H 10/13/23 03:15 Glucose 172 mg/dl (70-99(Fasting)) H 10/13/23 03:15 Lactate 1.6 mmol/L (0.4-2.0) 10/13/23 03:15 Calcium 8.9 mg/dl (8.6-10.3) 10/13/23 03:15 Magnesium 1.7 mg/dl (1.7-2.4) 10/13/23 03:15 Total Bilirubin 0.8 mg/dl (0.2-1.0) 10/13/23 03:15 AST 13 U/L (13-39) 10/13/23 03:15 ALT 15 U/L (7-52) 10/13/23 03:15 Alkaline Phosphatase 55 U/L (34-104) 10/13/23 03:15 Troponin I High Sens 16.3 pg/ml (0-14) H 10/13/23 03:15 Troponin I High Sens Cancelled 10/13/23 03:15 Total Protein 6.6 gm/dl (6.0-8.3) 10/13/23 03:15 Albumin 4.0 gm/dl (3.4-5.0) 10/13/23 03:15 Globulin 2.6 gm/dl (2.5-4.0) 10/13/23 03:15 Albumin/Globulin Ratio 1.5 (0.9-2) 10/13/23 03:15 Lipase 53 U/L (11-82) 10/13/23 03:15 Procalcitonin 0.72 ng/ml (0-0.5) H 10/13/23 03:15 TSH 0.601 uIu/ml (0.300-4.500) 10/13/23 03:15 Urine Color Yellow 10/13/23 03:34 Urine Appearance Clear (Clear) 10/13/23 03:34 Urine pH 5.5 (4.5-7.5) 10/13/23 03:34 Ur Specific [place] 1.023 (1.000-1.030) 10/13/23 03:34 Urine Protein 1+ (Negative) H 10/13/23 03:34 Urine Glucose (UA) Negative (Negative) 10/13/23 03:34 Urine Ketones Negative (Negative) 10/13/23 03:34 Urine Blood Negative (Negative) 10/13/23 03:34 Urine Nitrite Negative (Negative) 10/13/23 03:34 Urine Bilirubin Negative (Negative) 10/13/23 03:34 Urine Urobilinogen Negative (Negative) 10/13/23 03:34 Ur Leukocyte Esterase Negative (Negative) 10/13/23 03:34 Urine WBC (Auto) 0-5 /hpf (0-5) 10/13/23 03:34 Urine RBC (Auto) 0-2 /hpf (0-2) 10/13/23 03:34 U Hyaline Cast (Auto) 0-2 /lpf (0-2) 10/13/23 03:34 U Epithel Cells (Auto) 11-20 /hpf (0-2) H 10/13/23 03:34 Urine Bacteria (Auto) None Seen (None Seen) 10/13/23 03:34 Urine Mucus Present (None Prsent) A 10/13/23 03:34 Adenovirus (PCR) Not Detected (NotDetected) 10/13/23 03:15 B. pertussis DNA (PCR) Not Detected (NotDetected) 10/13/23 03:15 B.parapertussis DNA PCR Not Detected (NotDetected) 10/13/23 03:15 C. pneumoniae DNA (PCR) Not Detected (NotDetected) 10/13/23 03:15 Coronavirus OC43 (PCR) Not Detected (NotDetected) 10/13/23 03:15 Coronavirus HKU1 (PCR) Not Detected (NotDetected) 10/13/23 03:15 Coronavirus 229E (PCR) Not Detected (NotDetected) 10/13/23 03:15 SARS-CoV-2 (PCR) Not Detected (NotDetected) 10/13/23 03:15 Coronavirus NL63 (PCR) Not Detected (NotDetected) 10/13/23 03:15 Human Metapneumovir PCR Not Detected (NotDetected) 10/13/23 03:15 Influenza Type A (PCR) Not Detected (NotDetected) 10/13/23 03:15 Influenza Type B (PCR) Not Detected (NotDetected) 10/13/23 03:15 M. pneumoniae (PCR) Not Detected (NotDetected) 10/13/23 03:15 Parainfluenza 1 (PCR) Not Detected (NotDetected) 10/13/23 03:15 Parainfluenza 2 (PCR) Not Detected (NotDetected) 10/13/23 03:15 Parainfluenza 3 (PCR) Not Detected (NotDetected) 10/13/23 03:15 Parainfluenza 4 (PCR) Not Detected (NotDetected) 10/13/23 03:15 RSV (PCR) Not Detected (NotDetected) 10/13/23 03:15 Entero/Rhino (PCR) Not Detected (NotDetected) 10/13/23 03:[address] 10/13/23 03:26 Exam(s): CT HEAD Without Contrast EXAM: CT Head Without Intravenous Contrast CLINICAL HISTORY: Reason for exam: AMS. TECHNIQUE: Axial computed tomography images of the head/brain without intravenous contrast. Automated exposure control was utilized for the study. A dose lowering technique was utilized adhering to the principles of ALARA. COMPARISON: No relevant prior studies available. FINDINGS: Brain: Unremarkable. No hemorrhage. No significant white matter disease. No edema. Ventricles: Unremarkable. No ventriculomegaly. Bones/joints: Incomplete fusion posterior ring of C1. Hyperostosis frontalis interna. Small benign bony exostosis over the left frontal bone. No acute fracture. Soft tissues: Unremarkable. Sinuses: Unremarkable as visualized. No acute sinusitis. Mastoid air cells: Unremarkable as visualized. No mastoid effusion. IMPRESSION: No evidence of acute intracranial pathology. Electronically signed by: Evon Sanchez MD 10/13/23 04:51 AM Code Status & VTE Plan VTE Prophylaxis Plan VTE Prophylaxis will be ordered: Yes PG Care Time/CCT Total # of Minutes Spent Total Time Spent with Patient: Total time spent is greater than 50% in coordination of care (as documented) at patient's floor/unit and/or counseling patient: Coding Level of Care Code 86528 INT INP/OBS CARE MIN Diagnoses Febrile illness R50.9 Encephalopathy acute G93.40 Hypertension I10 Hyperlipidemia E78.5
[2023-10-13 05:38] LABS: Amphetamines+Metham, Urine Neg (Neg); Barbiturates, Urine Neg (Neg); Benzodiazepine, Urine Neg (Neg); Cocaine, Urine Neg (Neg); MDMA (Ecstacy), Urine Neg (Neg); Marijuana, Urine Neg (Neg); Methadone, Urine Neg (Neg); Opiate, Urine Neg (Neg); Phencyclidine, Urine Neg (Neg)
[2023-10-13] MEDS: ONDANSETRON INJ 2 MG/ML 2 ML VIAL ONE (06:01)
--- NOTE | 2023-10-13 06:34 | XRay Report ---
XR chest 1V portable CLINICAL HISTORY: Fever. COMPARISON STUDY: No previous studies for comparison. FINDINGS: There is moderate elevation of the right hemidiaphragm. Linear right basilar opacity favors atelectasis. Right infrahilar band-like density is present. There is mild cardiomegaly without evide nce for pulmonary edema. There is no pneumothorax or pleural effusion. IMPRESSION: 1. Band-like right infrahilar opacity. This favors atelectasis. Although less likely, pneumonia could appear similar. This could be assessed with a nonemergent chest CT to exclude a central obstructing lesion. This finding will be called/faxed to ordering provider at time of dictation. 2. Moderate elevation of the right hemidiaphragm. 3. Cardiomegaly without evidence for pulmonary edema. ACT 112: Negative or not required by law. Electronically signed by: Armando Bagley M.D. 10/13/2023 6:32 AM
--- NOTE | 2023-10-13 07:12 | Emergency Department Note ---
ED Visit Note I was consulted by the Advanced Practice Provider. I personally made/approved the management plan and take responsibility for the patient management. I performed a substantive portion of the visit. This includes the aspects of: Personally seeing the patient MDM I independently interpreted the following studies: Portable chest x-ray .
[2023-10-13] MEDS ORDERED: ONDANSETRON INJ 2 MG/ML 2 ML VIAL IV PRN (07:40)
[2023-10-13] MEDS ORDERED: ALBUTEROL HFA 8 GM INHALER INH PRN (07:40)
[2023-10-13] MEDS: LACTATED RINGER'S 1,000 ML IV SCH (08:51)
[2023-10-13] MEDS: DOXYCYCLINE HYCLATE 100 MG in DEXTROSE 5% MINI-B 100 ML IV SCH (08:57)
[2023-10-13] MEDS: ACETAMINOPHEN 325 MG TAB PO PRN (13:23)
--- NOTE | 2023-10-13 15:00 | XRay Report ---
XR chest 2V PA/lateral CLINICAL HISTORY: fever, hypoxia, ?pneumonia COMPARISON STUDY: Chest radiograph performed earlier today. FINDINGS: Moderate elevation of the right hemidiaphragm is again noted. No pneumothorax or pleural ef fusion is present. Linear right basilar densities favor atelectasis. The previously described right i nfrahilar opacity is partially obscured on this examination. There is no evidence for pulmonary edema . There is mild cardiomegaly. IMPRESSION: 1. Moderate elevation of the right hemidiaphragm. Previously described right infrahilar opacity obscu red on this exam. This could reflect atelectasis or pneumonia. 2. Cardiomegaly. No evidence for pulmonary edema. ACT 112: Negative or not required by law. Electronically signed by: Armando Bagley M.D. 10/13/2023 2:58 PM
--- NOTE | 2023-10-13 15:26 | Hospitalist Progress Note ---
Date of Service October 13, 2023 Assessment & Plan (1) Febrile illness: Plan: extensive w/u to date negative. resp biofire panel neg. lyme screen eng. anaplasmosis/babesia smears neg. blood cx's - although early - are neg. u/a not suggestive of UTI. rash, pharyngitis, fevers/flu-like symptoms - suggestive of viral process. strep can cause rash ("scarlet fever") but the rash preceded the fevers by days to weeks. thus, strep unlikely. [id number] sent throat culture. repeat cxr today with ? right basilar infiltrates --> early pneumonia? will add rocephin 2gm daily to the doxy - latter primarily being used to cover for tick-borne illness or rickettsial illness. in the end I am most suspicious for viral process, with tick-borne illness still in differential. cont fluids, supportive care, rocephin/doxy. repeat labs am. (2) Encephalopathy acute: Plan: metabolic - 2nd to causative agent of #1 improved (3) Hypertension: Plan: hold HCTZ (4) Hyperlipidemia: Plan: LFTs and CPK wnl Continue atorvastatin Admission and Anticipated Discharge Date Admission Date: October 13, 2023 Subjective remains febrile main complaints - chills/cold, headache, very weak, no appetite denies recent travel denies obvious sick contacts had rash earlier this month - thought to be contact dermatitis - very pruritic, treated w/ multiple courses of po prednisone with some relief and some improvement in the rash has sore throat as well denies myalgias or arthralgias Physical Exam Physical Exam: gen - morbidly obese, looks sick but nontoxic, NAD skin - sweaty from her fever; faint macular rash on arms, thighs, neck, back; soles of feet spared; palms - slight rash neck - no meningismus, supple; multiple lymph nodes >1cm mouth - MMM; tonsils 3+, erythematous heart - tachy, s1 s2, no murmur lungs - CTA B/l abd - soft NT ND BS+ ext - no edema, pulses 2+ b/l musculo - no joint effusions small or large joints psych - a/o x 3 Results & Data Results & Data Vital Signs (Past 12 Hours) Vital Signs Temp Pulse Pulse Resp BP BP Pulse Ox 10/13/23 13:20 39.5 C H 10/13/23 13:00 119 H 36 H 96 10/13/23 13:00 134/71 10/13/23 12:30 122 H 32 H 99 10/13/23 12:00 114 H 34 H 100 10/13/23 12:00 156/87 H 10/13/23 11:30 110 H 36 H 96 10/13/23 11:00 92 H 34 H 100 10/13/23 11:00 136/60 10/13/23 08:58 37.5 C 84 23 116/55 L 100 10/13/23 08:04 99 H 10/13/23 06:39 84 18 120/60 97 10/13/23 06:00 85 18 120/60 97 10/13/23 06:00 38.0 C H 104 H 23 138/62 97 10/13/23 05:00 116 H 21 113/58 L 96 10/13/23 04:33 39.3 C H 10/13/23 04:10 39.0 C H 118 H 30 H 141/66 H 97 O2 Del Method O2 Flow Rate 10/13/23 13:20 10/13/23 13:00 Nasal Cannula 4 10/13/23 13:00 10/13/23 12:30 10/13/23 12:00 Nasal Cannula 4 10/13/23 12:00 10/13/23 11:30 Nasal Cannula 4 10/13/23 11:00 Nasal Cannula 4 10/13/23 11:00 10/13/23 08:58 Nasal Cannula 4 10/13/23 08:04 10/13/23 06:39 Room Air 10/13/23 06:00 Room Air 10/13/23 06:00 Nasal Cannula 4 10/13/23 05:00 Nasal Cannula 4 10/13/23 04:33 10/13/23 04:10 Nasal Cannula 3 Laboratory Results Laboratory Results - last 48 hr 10/13/23 10/13/23 10/13/23 03:15 03:15 03:34 WBC 8.67 RBC 5.19 Hgb 15.4 Hct 45.2 MCV 87.1 MCH 29.7 MCHC 34.1 RDW Std Deviation 39.8 RDW Coeff of [place] 12.5 Plt Count 198 MPV 9.2 L Immature Gran % (Auto) 0.6 Neut % (Auto) 83.8 Lymph % (Auto) 7.5 [place] % (Auto) 7.4 Eos % (Auto) 0.5 Baso % (Auto) 0.2 Neut # (Auto) 7.27 H Lymph # (Auto) 0.65 L [place] # (Auto) 0.64 H Eos # (Auto) 0.04 Baso # (Auto) 0.02 Immature Gran # (Auto) 0.05 PT 11.3 INR 1.0 APTT 21 PTT Ratio 0.7 Sodium 136 Potassium 4.2 Chloride 100 Carbon Dioxide 28 Anion Gap 8 BUN 24 H Creatinine 1.02 Est Cr Clr Drug Dosing 56.2 Est GFR ( Amer) 66.4 Est GFR (Non-Af Amer) 57.3 BUN/Creatinine Ratio 23.5 H Glucose 172 H Estimat Average Glucose Hemoglobin A1c Lactate 1.6 Calcium 8.9 Magnesium 1.7 Total Bilirubin 0.8 Direct Bilirubin AST 13 ALT 15 Alkaline Phosphatase 55 Total Creatine Kinase Troponin I High Sens 16.3 H Cancelled C-Reactive Protein Total Protein 6.6 Albumin 4.0 Globulin 2.6 Albumin/Globulin Ratio 1.5 Lipase 53 Procalcitonin 0.72 H TSH 0.601 Urine Color Yellow Urine Appearance Clear Urine pH 5.5 Ur Specific [place] 1.023 Urine Protein 1+ H Urine Glucose (UA) Negative Urine Ketones Negative Urine Blood Negative Urine Nitrite Negative Urine Bilirubin Negative Urine Urobilinogen Negative Ur Leukocyte Esterase Negative Urine WBC (Auto) 0-5 Urine RBC (Auto) 0-2 U Hyaline Cast (Auto) 0-2 U Epithel Cells (Auto) 11-20 H Urine Bacteria (Auto) None Seen Urine Mucus Present A Urine Opiates Screen Neg Ur Methadone, Qual Neg Urine Barbiturates Neg Ur Phencyclidine (PCP) Neg U Amphetamin/Meth Scrn Neg MDMA (Ecstasy) Screen Neg U Benzodiazepines Scrn Neg Ur Cocaine Metabolite Neg U Marijuana (THC) Screen Neg Adenovirus (PCR) Not Detected Anaplasma Smear See Comment Babesia Smear See Comment B. pertussis DNA (PCR) Not Detected B.parapertussis DNA PCR Not Detected Lyme Disease Screen C. pneumoniae DNA (PCR) Not Detected Coronavirus OC43 (PCR) Not Detected Coronavirus HKU1 (PCR) Not Detected Coronavirus 229E (PCR) Not Detected SARS-CoV-2 (PCR) Not Detected Coronavirus NL63 (PCR) Not Detected Monoscreen Human Metapneumovir PCR Not Detected Influenza Type A (PCR) Not Detected Influenza Type B (PCR) Not Detected M. pneumoniae (PCR) Not Detected Parainfluenza 1 (PCR) Not Detected Parainfluenza 2 (PCR) Not Detected Parainfluenza 3 (PCR) Not Detected Parainfluenza 4 (PCR) Not Detected RSV (PCR) Not Detected Entero/Rhino (PCR) Not Detected 10/13/23 10/13/23 04:59 17:41 WBC RBC Hgb Hct MCV MCH MCHC RDW Std Deviation RDW Coeff of [place] Plt Count MPV Immature Gran % (Auto) Neut % (Auto) Lymph % (Auto) [place] % (Auto) Eos % (Auto) Baso % (Auto) Neut # (Auto) Lymph # (Auto) [place] # (Auto) Eos # (Auto) Baso # (Auto) Immature Gran # (Auto) PT INR APTT PTT Ratio Sodium 138 Potassium 3.8 Chloride 107 Carbon Dioxide 24 Anion Gap 7 BUN 17 Creatinine 0.84 Est Cr Clr Drug Dosing 68.3 Est GFR ( Amer) 83.9 Est GFR (Non-Af Amer) 72.4 BUN/Creatinine Ratio 20.2 H Glucose 119 H Estimat Average Glucose 131 Hemoglobin A1c 6.2 H Lactate Calcium 8.4 L Magnesium Total Bilirubin Direct Bilirubin AST ALT Alkaline Phosphatase Total Creatine Kinase 46 Troponin I High Sens 24.3 H C-Reactive Protein 10.00 H Total Protein Albumin Globulin Albumin/Globulin Ratio Lipase Procalcitonin TSH Urine Color Urine Appearance Urine pH Ur Specific [place] Urine Protein Urine Glucose (UA) Urine Ketones Urine Blood Urine Nitrite Urine Bilirubin Urine Urobilinogen Ur Leukocyte Esterase Urine WBC (Auto) Urine RBC (Auto) U Hyaline Cast (Auto) U Epithel Cells (Auto) Urine Bacteria (Auto) Urine Mucus Urine Opiates Screen Ur Methadone, Qual Urine Barbiturates Ur Phencyclidine (PCP) U Amphetamin/Meth Scrn MDMA (Ecstasy) Screen U Benzodiazepines Scrn Ur Cocaine Metabolite U Marijuana (THC) Screen Adenovirus (PCR) Anaplasma Smear Babesia Smear B. pertussis DNA (PCR) B.parapertussis DNA PCR Lyme Disease Screen Negative C. pneumoniae DNA (PCR) Coronavirus OC43 (PCR) Coronavirus HKU1 (PCR) Coronavirus 229E (PCR) SARS-CoV-2 (PCR) Coronavirus NL63 (PCR) Monoscreen Negative Human Metapneumovir PCR Influenza Type A (PCR) Influenza Type B (PCR) M. pneumoniae (PCR) Parainfluenza 1 (PCR) Parainfluenza 2 (PCR) Parainfluenza 3 (PCR) Parainfluenza 4 (PCR) RSV (PCR) Entero/Rhino (PCR) Diagnostic Findings Chest X-Ray 10/13/23 13:39 XR chest 2V PA/lateral CLINICAL HISTORY: fever, hypoxia, ?pneumonia COMPARISON STUDY: Chest radiograph performed earlier today. FINDINGS: Moderate elevation of the right hemidiaphragm is again noted. No pneumothorax or pleural effusion is present. Linear right basilar densities favor atelectasis. The previously described right infrahilar opacity is partially obscured on this examination. There is no evidence for pulmonary edema. There is mild cardiomegaly. IMPRESSION: 1. Moderate elevation of the right hemidiaphragm. Previously described right infrahilar opacity obscured on this exam. This could reflect atelectasis or pneumonia. 2. Cardiomegaly. No evidence for pulmonary edema. ACT 112: Negative or not required by law. Electronically signed by: Armando Bagley M.D. 10/13/2023 2:58 PM PG Care Time/CCT Total # of Minutes Spent Total Time Spent with Patient: Total time spent is greater than 50% in coordination of care (as documented) at patient's floor/unit and/or counseling patient: Coding Level of Care Code None Diagnoses Febrile illness R50.9 Encephalopathy acute G93.40 Hypertension I10 Hyperlipidemia E78.5
[2023-10-13] MEDS: IBUPROFEN 600 MG TAB PO PRN (15:30)
[2023-10-13] MEDS: IBUPROFEN 200 MG/10 ML UDC PO STA (15:33)
--- NOTE | 2023-10-13 16:20 | Electrocardiogram Report ---
Test Reason : Blood Pressure : / mmHG Vent. Rate : 138 BPM Atrial Rate : 138 BPM P-R Int : 128 ms QRS Dur : 090 ms QT Int : 362 ms P-R-T Axes : 031 -06 039 degrees QTc Int : 548 ms Sinus tachycardia with Premature supraventricular complexes RSR' or QR pattern in V1 suggests right ventricular conduction delay Minimal voltage criteria for LVH, may be normal variant ( R in aVL ) Nonspecific T wave abnormality Abnormal ECG No previous ECGs available Confirmed by Scott West ([id number]) on 10/13/2023 4:20:20 PM Referred By: REFERRED SELF Confirmed By:Scott West
[2023-10-13 18:33] LABS: BUN Creatinine Ratio 20.2 (10-20); Calcium 8.4 mg/dl (8.6-10.3); Creatinine Clr Calc Pharmacy 68.3 ml/min; Est GFR (African American) 83.9 ml/min; Est GFR (Non-African American) 72.4 ml/min; Potassium 3.8 mmol/L (3.5-5.1)
[2023-10-13 18:56] LABS: Estimated Average Glucose 131 mg/dl; Hemoglobin A1C 6.2 % (4.5-5.6)
[2023-10-13] MEDS: cefTRIAXone SODIUM 2,000 MG in DEXTROSE 5 % MINI-B 50 ML IV SCH (21:17)
[2023-10-13] MEDS: ATORVASTATIN 40 MG TAB PO SCH (21:17)
[2023-10-14 06:18] LABS: Hematocrit (blood only) 42.7 % (37.0-47.0); Hemoglobin 13.9 g/dl (12.0-16.0); Mean Corpuscular Hemoglobin 28.8 pg (25.0-34.0); Mean Corpuscular Hgb Conc 32.6 g/dL (32.0-36.0); Mean Corpuscular Volume 88.4 fL (80.0-100.0); Mean Platelet Volume 9.6 fL (9.4-12.4); Platelet Count 114 K/uL (130-400); RDW Coefficient of Variation 12.6 % (11.5-14.5); RDW Standard Deviation 41.1 fL (36.4-46.3); Red Blood Count 4.83 M/uL (4.20-5.40); White Blood Count 7.33 K/ul (4.8-10.8)
[2023-10-14 06:31] LABS: Albumin Level 3.1 gm/dl (3.4-5.0); BUN Creatinine Ratio 22.1 (10-20); Bilirubin Direct 0.2 mg/dl (0-0.2); Bilirubin,Total 0.6 mg/dl (0.2-1.0); Calcium 8.5 mg/dl (8.6-10.3); Creatinine Clr Calc Pharmacy 74.9 ml/min; Est GFR (African American) 93.3 ml/min; Est GFR (Non-African American) 80.5 ml/min; Potassium 3.8 mmol/L (3.5-5.1); Total Protein 5.4 gm/dl (6.0-8.3)
--- NOTE | 2023-10-14 20:32 | Hospitalist Progress Note ---
Date of Service October 14, 2023 Assessment & Plan (1) Febrile illness: Plan: extensive w/u to date negative. resp biofire panel neg. lyme screen eng. anaplasmosis/babesia smears neg. blood cx's neg. u/a not suggestive of UTI. throat cx thus far neg. rash, pharyngitis, fevers/flu-like symptoms - suggestive of viral process. strep can cause rash ("scarlet fever") but the rash preceded the fevers by days to weeks. thus, strep unlikely. [id number] sent throat culture. repeat cxr ? right basilar infiltrates --> early pneumonia? but lungs are clear today and no pulmonary symptoms. in the end I am most suspicious for viral process, with tick-borne illness still in differential. platelets being low today fit most with either viral process or tick-borne disease. cont IV rocephin/doxy. repeat labs am. (2) Encephalopathy acute: Plan: metabolic - 2nd to #1 resolved (3) Hypertension: Plan: hold HCTZ BPs controlled without it (4) Hyperlipidemia: Plan: LFTs and CPK wnl Continue atorvastatin (5) Obesity (BMI 30-39.9): Plan: BMI 36 (6) Thrombocytopenia: Plan: new mild suggestive of viral suppression or due to tick-borne disease repeat cbc am Plan DVT proph - if patient stays beyond tomorrow add lovenox daily niece updated at bedside d/c martinez Admission and Anticipated Discharge Date Admission Date: October 13, 2023 Subjective overall feeling better today requested martinez removal still no appetite but overall her energy/strength are improved still with mild headache still with mild sore throat but no new symptoms Review of Systems Review of Systems: gen - no fevers/chills today cv - no chest pain pulm - no cough, no dyspnea, no PIERCE GI - no diarrhea - no dysuria skin - rash improved Physical Exam Physical Exam: gen - morbidly obese, sitting in chair, looks much better today skin - improved macular rash on arms, thighs, neck, back mouth - MMM; tonsils 3+, erythematous heart - RRR, s1 s2, no murmur lungs - CTA B/l abd - soft NT ND BS+ ext - no edema, pulses 2+ b/l psych - a/o x 3 Results & Data Results & Data Vital Signs (Past 12 Hours) Vital Signs Temp Pulse Pulse Resp BP Pulse Ox O2 Del Method 10/14/23 19:30 37.0 C 99 H 18 124/80 95 Room Air 10/14/23 16:40 36.9 C 101 H 18 127/67 94 Room Air 10/14/23 15:47 103 H 10/14/23 11:47 36.7 C 82 18 135/78 93 Room Air Laboratory Results Laboratory Results - last 24 hr 10/14/23 05:33 WBC 7.33 RBC 4.83 Hgb 13.9 Hct 42.7 MCV 88.4 MCH 28.8 MCHC 32.6 RDW Std Deviation 41.1 RDW Coeff of Zonia 12.6 Plt Count 114 L MPV 9.6 Sodium 138 Potassium 3.8 Chloride 106 Carbon Dioxide 25 Anion Gap 7 BUN 17 Creatinine 0.77 Est Cr Clr Drug Dosing 74.9 Est GFR ( Amer) 93.3 Est GFR (Non-Af Amer) 80.5 BUN/Creatinine Ratio 22.1 H Glucose 106 H Calcium 8.5 L Total Bilirubin 0.6 Direct Bilirubin 0.2 AST 29 ALT 26 Alkaline Phosphatase 44 Total Protein 5.4 L Albumin 3.1 L Diagnostic Findings blood/throat cx negative to date PG Care Time/CCT Total # of Minutes Spent Total Time Spent with Patient: Total time spent is greater than 50% in coordination of care (as documented) at patient's floor/unit and/or counseling patient: Coding Level of Care Code 54531 SUB INP/OBS CARE 2/35MIN Diagnoses Febrile illness R50.9 Encephalopathy acute G93.40 Hypertension I10 Hyperlipidemia E78.5 Obesity (BMI 30-39.9) E66.9 Thrombocytopenia D69.6
[2023-10-14] MEDS: MELATONIN 3 MG TAB PO PRN (21:09)
[2023-10-15 08:53] LABS: BUN Creatinine Ratio 18.7 (10-20); Calcium 8.5 mg/dl (8.6-10.3); Creatinine Clr Calc Pharmacy 76.2 ml/min; Est GFR (African American) 96.3 ml/min; Est GFR (Non-African American) 83.1 ml/min; Potassium 4.2 mmol/L (3.5-5.1)
[2023-10-15 09:49] LABS: Basophils # (auto) 0.02 K/uL (0.00-0.20); Basophils % (auto) 0.3 %; Eosinophils # (auto) 0.07 K/uL (0.00-0.50); Eosinophils % (auto) 0.9 %; Hematocrit (blood only) 42.7 % (37.0-47.0); Hemoglobin 13.7 g/dl (12.0-16.0); Immature Granulocytes # (auto) 0.01 K/uL (0.01-0.20); Immature Granulocytes % (auto) 0.1 %; Lymphocytes # (auto) 1.16 K/uL (1.20-3.40); Lymphocytes % (auto) 15.7 %; Mean Corpuscular Hemoglobin 28.1 pg (25.0-34.0); Mean Corpuscular Hgb Conc 32.1 g/dL (32.0-36.0); Mean Corpuscular Volume 87.5 fL (80.0-100.0); Mean Platelet Volume 10.4 fL (9.4-12.4); Monocytes % (auto) 8.1 %; Neutrophils # (auto) 5.54 K/uL (1.40-6.50); Neutrophils % (auto) 74.9 %; Platelet Count 90 K/uL (130-400); Platelet Estimate Decreased (Normal); RDW Coefficient of Variation 12.5 % (11.5-14.5); RDW Standard Deviation 40.1 fL (36.4-46.3); Red Blood Count 4.88 M/uL (4.20-5.40)
[2023-10-15 12:11] LABS: EBV Virus Capsid Ag IgG Ab >750.00 U/mL; Epstein Barr Virus Early Ag Ab <9.00 U/mL
[2023-10-15 14:52] LABS: C Reactive Protein 10.62 mg/dl (0-0.5)
--- NOTE | 2023-10-15 16:55 | Discharge Summary ---
Date of Service date of admission - October 13, 2023 date of discharge - October 15, 2023 Admission HPI Per Admitting Provider Gracie Salazar is a 68yo female with history of HTN, HLP and asthma presenting from home with acute febrile illness. Patient has been in her usual state of health with exception of a diffuse pruritic rash that occurred several weeks ago. She completed a course of steroids with improvement and is currently on her second course of steroids. This morning she went to get her hair done. She developed some chills and fatigue. She then returned home and called her sister. Her sister reports that she sounded tired and a little bit off, some difficulty with speaking. Her confusion progressed throughout the day. Patient was not answering questions this evening which prompted family to call EMS. Per report, patient febrile, tachycardic, tachypneic. Decreased saturations. Patient presently offers no complaints. She has had an intermittent headache and chills. Denies neck pain or stiffness, chest pain, cough, shortness of breath, abdominal pain, nausea, vomiting, diarrhea, constipation, urinary complaints. She was bitten by a tick 3 weeks ago in the back of her knee. She reports that the area became very red afterwards but does not describe a true bull's-eye rash. ER course: Tylenol, cefepime, normal saline x 2 L Principal Diagnosis 1. suspected viral infection vs tick-borne infection 2. acute metabolic encephalopathy - resolved; 2nd to #1 above 3. chronic rash - dermatology follow-up needed; exact cause uncertain 4. recently elevated blood pressures - follow-up needed 5. mild thrombocytopenia - due to #1 above - repeat CBC needed Discharge Exam gen - morbidly obese, sitting in chair, looks well today skin - improved macular rash on arms, thighs, neck, back mouth - MMM; tonsils 3+, erythematous heart - RRR, s1 s2, no murmur lungs - CTA B/l abd - soft NT ND BS+ ext - no edema, pulses 2+ b/l psych - a/o x 3 Discharge Data Allergies Allergy/AdvReac Type Severity Reaction Status Date / Time No Known Allergies Allergy Verified 03/10/21 12:14 Ordered Studies Chest X-Ray 10/13/23 03:24 XR chest 1V portable CLINICAL HISTORY: Fever. COMPARISON STUDY: No previous studies for comparison. FINDINGS: There is moderate elevation of the right hemidiaphragm. Linear right basilar opacity favors atelectasis. Right infrahilar band-like density is present. There is mild cardiomegaly without evidence for pulmonary edema. There is no pneumothorax or pleural effusion. IMPRESSION: 1. Band-like right infrahilar opacity. This favors atelectasis. Although less likely, pneumonia could appear similar. This could be assessed with a nonemergent chest CT to exclude a central obstructing lesion. This finding will be called/faxed to ordering provider at time of dictation. 2. Moderate elevation of the right hemidiaphragm. 3. Cardiomegaly without evidence for pulmonary edema. ACT 112: Negative or not required by law. Electronically signed by: Armando Bagley M.D. 10/13/2023 6:[address] 10/13/23 03:26 Exam(s): CT HEAD Without Contrast EXAM: CT Head Without Intravenous Contrast CLINICAL HISTORY: Reason for exam: AMS. TECHNIQUE: Axial computed tomography images of the head/brain without intravenous contrast. Automated exposure control was utilized for the study. A dose lowering technique was utilized adhering to the principles of ALARA. COMPARISON: No relevant prior studies available. FINDINGS: Brain: Unremarkable. No hemorrhage. No significant white matter disease. No edema. Ventricles: Unremarkable. No ventriculomegaly. Bones/joints: Incomplete fusion posterior ring of C1. Hyperostosis frontalis interna. Small benign bony exostosis over the left frontal bone. No acute fracture. Soft tissues: Unremarkable. Sinuses: Unremarkable as visualized. No acute sinusitis. Mastoid air cells: Unremarkable as visualized. No mastoid effusion. IMPRESSION: No evidence of acute intracranial pathology. Electronically signed by: Evon Sanchez MD 10/13/23 04:51 AM Chest X-Ray 10/13/23 13:39 XR chest 2V PA/lateral CLINICAL HISTORY: fever, hypoxia, ?pneumonia COMPARISON STUDY: Chest radiograph performed earlier today. FINDINGS: Moderate elevation of the right hemidiaphragm is again noted. No pneumothorax or pleural effusion is present. Linear right basilar densities favor atelectasis. The previously described right infrahilar opacity is partially obscured on this examination. There is no evidence for pulmonary ed felisa. There is mild cardiomegaly. IMPRESSION: 1. Moderate elevation of the right hemidiaphragm. Previously described right infrahilar opacity obscured on this exam. This could reflect atelectasis or pneumonia. 2. Cardiomegaly. No evidence for pulmonary edema. ACT 112: Negative or not required by law. Electronically signed by: Armando Bagley M.D. 10/13/2023 2:58 PM Hospital Course (1) Febrile illness: Extensive work-up while here was unrevealing. Respiratory biofire panel neg. Lyme screen neg. Anaplasmosis/babesia smears neg. Blood cx's negative. u/a not suggestive of UTI. Throat cx was negative. CXR x 2 with question of right basilar infiltrates --> early pneumonia vs atelectasis; latter favored -- had no pulmonary symptoms during the stay. Clinical picture was most suggestive of a viral illness vs tick-borne illness. Mildly low platelets suggest one of the above etiologies as well. During the stay received a combination of IV rocephin/doxyxycline. She clinically improved with resolution of fever with supportive care and antibiotics. At discharge was sent home on doxycycline 100mg BID while awaiting tick-borne labs. If one of her tick-borne labs returns positive she will need a total of 14 days of the doxycycline. (2) Encephalopathy acute: metabolic - 2nd to #1 above - resolved (3) Hypertension: HCTZ was held while here. BPs were controlled without it. At discharge I asked her to continue holding HCTZ and to f/u with her PCP for her BPs. (4) Hyperlipidemia: LFTs and CPK wnl Continue atorvastatin (5) Obesity (BMI 30-39.9): BMI 36 (6) Thrombocytopenia: new mild suggestive of viral suppression or due to tick-borne disease discharge platelet count was 90 will need a repeat CBC within 3-4 days of discharge to ensure stability she was asked to avoid NSAIDs until her platelet count is rechecked (7) Rash: chronic, present for several months pruritic some response to oral steroids (used as outpatient in the past) present on upper chest, neck, arms, legs, etc. due to chronicity of the rash a dermatology referral was made for patient cont anti-histamines prn I do not think her rash and the febrile illness were connected in any way as the rash preceded this illness by several weeks if not longer a prescription for triamcinolone cream 0.1% to be used prn was given at discharge Total Time Total Time Spent Total Time Spent (In Minutes): 40 Discharge Plan Discharge Items Patient Disposition: Home - Self-Care Reason For Visit: FEVER, CONFUSION Discharge Diagnosis: 1. suspected viral infection vs tick-borne infection as cause of your fever 2. confusion/delirium - resolved; 2nd to #1 above 3. chronic rash - dermatology follow-up needed; exact cause uncertain 4. recently elevated blood pressures - follow-up needed 5. recent tick bite - tick labs pending 6. mildly low platelets - due to #1 above - repeat CBC needed at time of hospital follow-up Activity: As commented below Activity Comment: gradually increase activities over the next 7-10 days as tolerated Driving/Machine Use: Resume 3 days after discharge Non-emergency contact: Primary Care Provider and Specialist Call non-emergency contact if: you have any medication questions, your symptoms worsen and you have a fever Follow-up/Referrals: Jose Sánchez [Primary Care Provider] - 10/18/23 10:30 am Brandon Rodriguez MD [Physician] - (Dermatology office will call you to schedule a follow up appointment for your rash.) Diet: Regular Addtl Attending Provider Instructions: Ms Salazar, Clint were hospitalized due to having a febrile illness along with confusion. The confusion was likely due to the infection itself. Confusion caused by an infection is called "delirium." As the infection resolves the delirium goes away with it. You received 2 different IV antibiotics while here. Blood cultures were negative - that is, no bacterial infection was found in the blood. Urinalysis was normal. Lyme disease test was negative. Screenings for 2 other types of tick borne diseases were negative, but additional blood work for tick diseases were sent off. Testing for various viruses on a respiratory panel were negative (no COVID, flu, RSV, etc were found). [place] screening test was negative. Chest x-rays showed a questionable pneumonia in the right lung, but this was uncertain, and your lungs have been clear and your oxygen levels have been normal while here. If there was any infection of the lung the current antibiotics will cover it. Due to sore throat a culture for strep was sent and returned negative; you do not have strep throat. You improved with the antibiotics and IV fluids. Fevers resolved early in the AM on 10/14/23. At this time I suspect your illness was either due to a virus or a tick-borne illness. We will contact you if any of your pending blood work shows the culprit bug OR we need to change your antibiotic. Finally, your platelet count was mildly low while here. Viruses and tick-borne diseases will often cause a temporary drop in your platelet count. The level of your platelets is in a range that does not cause problems. You will need to have Dr Sánchez recheck your platelet count with a "CBC" when he sees you next week. Recommendations - 1. to cover for possible tick-borne disease please take doxycycline antibiotic - 100mg twice daily x 12 more days; first dose TONIGHT. * common side effect - heartburn/stomach upset * rare side effect - if you spend a lot of time in the sun you can theoretically get a rash; this is rare; simply covery up & use sunscreen well the next couple of weeks 2. plenty of fluids next few days and focus on good nutrition during your recovery. 3. please avoid motrin/ibuprofen for aches/pains/fever at this time. OK to use tylenol [id number] as needed. 4. for any nausea you may use ondansetron 4mg every 6 hours as needed. 5. for the next 2 weeks, to avoid stomach upset from the recent prednisone and the doxycycline, take pantoprazole 40mg once daily; you can start this today. 6. please stop your hydrochlorothiazide blood pressure pill for now. 7. please purchase a blood pressure cuff from the pharmacy and check your blood pressures twice a day. Write these down and show them to Dr Sánchez for his review. 8. for itchy rash you may use - triamcinolone cream up to 3 times daily in thin amounts to the worst areas of rash/itch. avoid face & genitals. Follow-up - see separate section Return to [facility] if - * you have recurrent fevers over 100.5 degrees * you have worsening shortness of breath, chest pain, fatigue/weakness, etc * you have recurrent confusion * you develop severe diarrhea * your rash worsens significantly * any other concerns It was our pleasure to care for you! Pending Studies at Discharge: Yes Studies:: Multiple viral studies, tick-borne illness labs, blood cultures (but thus far negative) Stand-Alone Forms: [facility], Smoking Cessation Medications and DC Order Prescriptions: New doxycycline monohydrate 100 mg tablet 100 mg PO BID 12 Days Qty: 24 0RF Rx Instructions: first dose PM of 10/15/23. ondansetron 4 mg tablet,disintegrating 4 mg PO Q6H PRN (Reason: nausea and vomiting) Qty: 10 0RF pantoprazole [Protonix] 40 mg tablet,delayed release (DR/EC) 40 mg PO QAM 14 Days Qty: 14 0RF triamcinolone acetonide 0.1 % cream 1 applic topical TID PRN (Reason: itchy rash) Qty: 30 1RF Rx Instructions: avoid face/genitals. Continued albuterol sulfate 90 mcg/actuation Hfa Aerosol Inhaler 2 puff INHALATION Q4H PRN (Reason: Shortness Of Breath) Rx Instructions: hasn't filled for around 5 years simvastatin 40 mg tablet 40 mg PO DAILY hydroxyzine HCl 25 mg tablet 25 mg PO TID PRN (Reason: itching) Qty: 1 0RF Discontinued prednisone 20 mg tablet 20 mg PO DAILY Rx Instructions: per pharmacy she should be 9 days into tapering hydrochlorothiazide 12.5 mg tablet 12.5 mg PO DAILY Discharge Orders: Discharge Order (Routine); Ordered 10/15/23 Ordered By: Randy Rodriguez/Other Patient Handouts: Prediabetes, 5 Steps for Eating Healthier Admission Data Admit Date/Time: 10/13/23 05:12 Attending Provider: Randy Almanzar Admit Provider: Manasa Urena Primary Care Provider: Jose Sánchez Other Providers: Manasa Urena Other Interventions: Discharge Summary Assessment (RN) Last Done: 10/15/23 07:21 Coding Level of Care Code 00686 INP/OBS DISCH >30 MIN Diagnoses Febrile illness R50.9 Encephalopathy acute G93.40 Hypertension I10 Hyperlipidemia E78.5 Obesity (BMI 30-39.9) E66.9 Thrombocytopenia D69.6 Rash R21
[2023-10-18 15:22] LABS: Ehrlichia chaff DNA Bld Negative (Negative)
[2023-10-19 17:37] LABS: CMV IgG Antibody <0.60 U/mL; CMV IgM Antibody <30.00 AU/mL; Parvovirus IgM 0.1 (<0.9)
[2023-10-20 13:42] LABS: Babesia microti DNA Not Detected (Not Detected); Q Fever IgG, Phase I NEGATIVE; Q Fever Phase I IgM Antibody NEGATIVE; Q Fever Phase II IgG Antibody NEGATIVE; Q Fever Phase II IgM Antibody NEGATIVE; R. typhi IgG Ab NOT DETECTED; R. typhi IgM Ab NOT DETECTED; RMSF IgG Ab NOT DETECTED; RMSF IgM Ab NOT DETECTED
== END 2023-10-15 17:40 | disposition home or self-care (01) | DRG 871 ==
LOC: ED 02:57 → EDINP 05:12 → SUATTDRO 05:12 → 2W 07:40